=== PATIENT | female | born 1985 | race Caucasian/White ===

== ENCOUNTER 2021-03-16 16:26 | Inpatient (IN) | payer OTHER ==
[~2021-03-16] VITALS: Ht 154.9 cm; Wt 64.9 kg
[2021-03-17] MEDS ORDERED: ATABEX OB TABL1 EACH (08:22)
== END 2021-03-19 17:13 | disposition home or self-care (01) | DRG 807 ==
LOC: LDR 16:26 → OB/GYN 03-17 19:17
PROVIDERS: ADMIT Obstetrics & Gynecology; ATTEND Obstetrics & Gynecology
PROC: 4A1HXFZ Monitoring of Products of Conception, Cardiac Rhythm, External Approach (ICD-10-PCS; 2021-03-16)
PROC: 10E0XZZ Delivery of Products of Conception, External Approach (ICD-10-PCS; principal; 2021-03-18)
DX: O80 Encounter for full-term uncomplicated delivery (principal); Z37.0 Single live birth; Z3A.38 38 weeks gestation of pregnancy